=== PATIENT | female | born 1955 | race Two or more races ===

== ENCOUNTER 2024-04-17 08:53 | Outpatient (CLI) | payer OTHER ==
[~2024-04-17 08:53] MED LIST: BEE WITH C1 CAP
== END 2024-04-17 08:58 | disposition home or self-care (01) ==
LOC: SONOGRAMA 08:53
PROVIDERS: ATTEND Pathology Anatomic Pathology & Clinical Pathology
DX: D34 Benign neoplasm of thyroid gland (principal); D44.0 Neoplasm of uncertain behavior of thyroid gland